=== PATIENT | male | born 1955 | race Caucasian/White ===

== ENCOUNTER 2019-03-03 10:09 | Emergency (ER) | payer MEDICARE ==
[2019-03-03 10:47] LABS: #Basophils 0.1 thou/uL (0.0-0.2); #Eosinphils 0.1 thou/uL (0.0-0.7); #Lymphocytes 2.1 thou/uL (1.20-3.40); #Monocytes 0.5 thou/uL (0.11-0.59); %Basophils 1.2 % (0.0-1.0); %Eosinophils 2.2 % (0.0-10.0); %Lymphocytes 30.3 % (21.0-51.0); %Monocytes 6.8 % (0.0-10.0); %Neutrophils 59.6 % (42.0-75.0); Hemoglobin 11.9 g/dL (14.0-18.0); Mean Corpuscular HGB CONC 34.2 g/dL (32.0-36.0); Mean Corpuscular Hemoglobin 30.5 pg (27.0-31.0); Mean Corpuscular Volume 89.2 fL (78.0-98.0); Mean Platelet Volume 7.4 fL (7.4-10.4); Platelet Count 210 thou/uL (130-400); RBC Distribution Width 11.6 % (11.5-14.5); Red Blood Cell (RBC) Count 3.89 mill/uL (4.70-6.10); White Blood Cell (WBC) Count 6.8 thou/uL (4.8-10.8)
[2019-03-03 10:59] LABS: ALT (SGPT) 10 U/L (8-55); AST (SGOT) 14 U/L (5-34); Alkaline Phosphatase 101 U/L (40-150); Anion Gap 10 mmol/L (10-20); BUN (Urea Nitrogen) 7 mg/dL (8.4-25.7); Bilirubin, Total 0.5 mg/dL (0.2-1.2); Calc. Creatinine Clearance 0 mL/min (70-130); Calcium 8.9 mg/dL (7.8-10.44); Carbon Dioxide 24 mmol/L (23-31); Estimated GFR-MDRD 62; Globulin 2.9 g/dL (2.4-3.5); Glucose 101 mg/dL (80-115); Magnesium 1.6 mg/dL (1.6-2.6); Protein, Total 6.9 g/dL (5.8-8.1)
[2019-03-03 11:09] LABS: Clarity Clear (Clear)
[2019-03-03 11:10] LABS: Bilirubin Negative (Negative); Blood, Urine Negative (Negative); Glucose, Urine (Dipstick) Negative (Negative); Leukocyte Negative (Negative); Nitrite Negative (Negative); Protein, Urine (Dipstick) Negative (Neg-Trace); Specific Gravity, Urine 1.004 (1.002-1.036); Urobilinogen 0.2 mg/dL (0.2-1.0)
[2019-03-03] MEDS ORDERED: Potassium Chloride 20 MEQ TAB ONE (11:18)
[2019-03-03 11:25] LABS: Potassium 3.1 mmol/L (3.5-5.1); Sodium 138 mmol/L (136-145)
[2019-03-03 11:26] LABS: Chloride 103 mmol/L (98-107)
[2019-03-03 11:45] LABS: Anion Gap 14 mmol/L (10-20)
[2019-03-03 11:48] LABS: BUN (Urea Nitrogen) 7 mg/dL (8.4-25.7); Calc. Creatinine Clearance 0 mL/min (70-130); Calcium 8.6 mg/dL (7.8-10.44); Carbon Dioxide 23 mmol/L (23-31); Chloride 105 mmol/L (98-107); Estimated GFR-MDRD 66; Glucose 99 mg/dL (80-115); Potassium 3.3 mmol/L (3.5-5.1); Sodium 139 mmol/L (136-145)
--- NOTE | 2019-03-03 17:36 | RAD ---
CHEST TWO VIEWS: Date: 03-03-19 Comparison: 01-09-13 FINDINGS: The heart is normal in size and the lungs are clear. No infiltrate or effusion was seen. The mediasti num appears normal and the trachea is midline. No free air was seen beneath the diaphragm. IMPRESSION: No acute thoracic finding. POS: HOME
== END 2019-03-03 12:57 | disposition home or self-care (01) ==
LOC: BURERS 10:09
DX: E86.0 Dehydration (principal); R07.89 Other chest pain; R10.9 Unspecified abdominal pain; E78.5 Hyperlipidemia, unspecified; I10 Essential (primary) hypertension; F17.220 Nicotine dependence, chewing tobacco, uncomplicated; Z79.899 Other long term (current) drug therapy
CPT/HCPCS: 71046; 80053; 81003; 83735; 84484; 85025; 93005; 96374

== ENCOUNTER 2022-07-03 16:30 | Outpatient (CLI) | payer OTHER | END 2022-07-03 16:31 | disposition home or self-care (01) | LOC: BURRAD 16:30 | PROVIDERS: ATTEND Family Medicine | DX: M79.602 Pain in left arm (principal) ==